=== PATIENT | male | born 1970 | race Two or more races ===

== ENCOUNTER 2017-04-14 08:03 | Emergency (ER) | payer BC ==
[2017-04-14 08:19] VITALS: BP 114/72; PULSE 82; TEMP 97.7; BMI 27.4
[2017-04-14] MEDS ORDERED: MECLIZINE HCL 25 MG TABLET (FP) PO ONE (08:53)
[2017-04-14] MEDS ORDERED: MECLIZINE HCL 25 MG TABLET (FP) ONE (08:59)
--- NOTE | 2017-04-14 09:01 | PDOC ---
History of Present Illness - General Chief Complaint: Lightheaded Stated Complaint: DIZZINESS Time Seen by Provider: 04/14/17 08:26 History Source: Patient Exam Limitations: No Limitations - History of Present Illness Initial Comments: 04/14/17 09:06 47-year-old male presents tto ED with complaints of dizziness upon awakening since yesterday. Patient states every time he gets up from a lying position he feels that the room is spinning and has to hold onto objects so he does not "fall." Patient denies headache, visual changes, nausea, neck pain, recent fever or recent chills, recent change in diet, recent change in weight, or recent illness. Patient states had similar symptoms a year and a half ago but did not seek treatment and symptoms did not return. Patient denies medical history, drug use, alcohol use or recent head injury. Timing/Duration: intermittent Severity: moderate Associated Symptoms: reports: other (dizziness) Past History - Travel Traveled outside of the country in the last 30 days: No Close contact w/someone who was outside of country & ill: No - Past Medical History Allergies/Adverse Reactions: Allergies Allergy/AdvReac Type Severity Reaction Status Date / Time No Known Allergies Allergy Verified 04/14/17 08:15 Home Medications: Ambulatory Orders Albuterol 0.083% Nebulizer Sarah [Ventolin 0.083% Nebulizer Soln -] 1 neb NEB Q6H PRN #30 vial 08/27/13 Albuterol Sulfate [Proair Hfa -] 1 - 2 inh PO QID PRN #1 inhaler 08/27/13 Mometasone Furoate [Nasonex] 1 inh IN DAILY 08/27/13 Albuterol 0.083% Nebulizer Sarah [Ventolin 0.083% Nebulizer Soln -] 1 neb NEB Q4H #90 vial 07/09/15 Albuterol Sulfate Inhaler - [Ventolin HFA Inhaler -] 2 inh PO Q4H #1 inh Prednisone [Deltasone -] 40 mg PO DAILY 5 Days 07/09/15 Asthma: Yes - Suicide/Smoking/Psychosocial Hx Smoking Status: No Smoking History: Never smoked Have you smoked in the past 12 months: No Number of Cigarettes Smoked Daily: 0 Information on smoking cessation initiated: No Hx Alcohol Use: No Drug/Substance Use Hx: No Substance Use Type: None Patient Lives Alone: No Lives with/in: spouse/SO Review of Systems - Review of Systems Able to Perform ROS?: Yes Constitutional: No: Symptoms Reported HEENTM: No: Symptoms Reported Respiratory: No: Symptoms reported Cardiac (ROS): Yes: Lightheadedness ABD/GI: No: Symptoms Reported : No: Symptoms Reported Musculoskeletal: No: Symptoms Reported Integumentary: No: Symptoms Reported Neurological: Yes: Dizziness. No: Headache, Numbness, Tingling, Weakness *Physical Exam - Vital Signs Last Vital Signs Temp Pulse Resp BP Pulse Ox 97.7 F 82 20 114/72 100 04/14/17 08:16 04/14/17 08:16 04/14/17 08:16 04/14/17 08:16 04/14/17 08:16 - Physical Exam General Appearance: Yes: Nourished, Appropriately Dressed. No: Apparent Distress HEENT: positive: EOMI, ANDREA. negative: Pale Conjunctivae Respiratory/Chest: positive: Lungs Clear, Normal Breath Sounds. negative: Respiratory Distress, Accessory Muscle Use Cardiovascular: positive: Regular Rhythm, Regular Rate. negative: Murmur Gastrointestinal/Abdominal: positive: Soft. negative: Tenderness Extremity: positive: Normal Capillary Refill. negative: Pedal Edema Integumentary: positive: Normal Color, Warm, Moist Neurologic: positive: Motor Strength 5/5 (ambulatory) Heart Score/ECG Review - ECG Intrepretation Rhythm: Regular Rhythm (normal sinus rhythm at 74. No acute findings) ED Treatment Course - RADIOLOGY Radiology Studies Ordered: Category Date Time Status HEAD CT WITHOUT CONTRAST [CT] Stat CT Scan 04/14/17 08:53 Ordered Medical Decision Making - Medical Decision Making 04/14/17 09:14 Patient with complaints of dizziness worsened with standing. Patient on exam had no acute findings. Patient was Hallpike's negative. Based on patient's history of present illness, patient will be treated for vertigo. Patient ordered for labs including CBC, comp, EKG and head CT along with meclizine. Laboratory Tests 04/14/17 04/14/17 08:10 08:10 WBC 8.6 D Hgb 14.5 Hct 43.1 Plt Count 201 D Sodium 141 Potassium 4.6 D Chloride 106 Carbon Dioxide 30 Anion Gap 5 L BUN 24 H Creatinine 1.2 D Random Glucose 139 H D Calcium 8.8 04/14/17 11:[address] negative for acute findings. Patient states that after receiving medication. Patient be discharged home with meclizine and follow-up to neurology. *DC/Admit/Observation/Transfer Diagnosis at time of Disposition: Vertigo - Discharge Dispostion Disposition: HOME Condition at time of disposition: Improved - Referrals Referrals: Mohsen Herzog DO [Staff Physician] - - Patient Instructions Printed Discharge Instructions: DI for Benign Paroxysmal Positional Vertigo Additional Instructions: At this time I recommend getting up in increments and taking the meclizine as needed for symptoms. Please also follow up with referred neurologist. If symptoms worsen prior to your follow-up and despite above recommendations please return to the nearest emergency room.
[2017-04-14 09:26] LABS: BASOPHIL 0.6 % (0-2.0); EOSINOPHIL 0.5 % (0-4.5); MCH 28.3 pg (25.7-33.7); MCHC 33.6 g/dl (32.0-35.9); MEAN CELL VOLUME 84.3 fl (80-96); MEAN PLT VOLUME 9.1 fl (7.5-11.1); NEUTROPHILS 82.5 % (42.8-82.8); PLATELET COUNT 201 K/MM3 (134-434); RDW 11.7 % (11.9-15.9); WHITE BLOOD COUNT 8.6 K/mm3 (4.0-10.0)
[2017-04-14 09:39] LABS: ALBUMIN 3.9 g/dl (3.4-5.0); ALK PHOS 101 U/L (45-117); ANION GAP 5 (8-16); BILIRUBIN,TOTAL 0.3 mg/dL (0.2-1.0); CALCIUM 8.8 mg/dL (8.5-10.1); CO2 30 mmol/L (21-32); CREATININE 1.2 mg/dL (0.7-1.3); GLUCOSE,RANDOM 139 mg/dL (74-106); SGOT/AST 16 U/L (15-37); SGPT/ALT 39 U/L (12-78); TOT PROT 7.6 g/dl (6.4-8.2)
--- NOTE | 2017-04-15 09:37 | EKG ---
Test Reason : Blood Pressure : / mmHG Vent. Rate : 074 BPM Atrial Rate : 074 BPM P-R Int : 182 ms QRS Dur : 094 ms QT Int : 374 ms P-R-T Axes : 053 088 062 degrees QTc Int : 415 ms NORMAL SINUS RHYTHM NORMAL ECG NO PREVIOUS ECGS AVAILABLE Confirmed by SALAS ARCHULETA, CHALO ([id number]) on 04/15/2017 9:37:48 AM Referred By: Confirmed By:CHALO MARINA MD
== END 2017-04-14 12:18 | disposition home or self-care (01) ==
LOC: JER 08:03
DX: H81.10 Benign paroxysmal vertigo, unspecified ear (principal)
CPT/HCPCS: 36415; 70450-TC; 80053; 85025; 93005; 93010; 99282-25

== ENCOUNTER 2019-04-15 10:52 | Emergency (ER) | payer BC, OTHER ==
[2019-04-15 11:10] VITALS: PULSE 89; BMI 27.3
--- NOTE | 2019-04-15 11:25 | PDOC ---
History of Present Illness - General Chief Complaint: Lightheaded Stated Complaint: VIRITGO Time Seen by Provider: 04/15/19 11:25 History Source: Patient Exam Limitations: No Limitations - History of Present Illness Initial Comments: 49 year old male with PMH vertigo presented to ED for dizziness room spinning sensation since last night associated with nausea. Pt reported that his symptoms are intermittent, brought on by looking to the left or getting out of bed, alleviated by lying flat. Pt reported his symptoms continued this morning, prompting him to come to the ED. He reported he does not have Meclizine at home because the last time he had an episode of vertigo was June. He denied fever , weakness, numbness, tingling, disequilibrium, visual changes, headache, chest pain, shortness of breath, lightheadedness. Pt reported currently during interview while laying flat on back symptoms are not present. Past History - Past Medical History Allergies/Adverse Reactions: Allergies Allergy/AdvReac Type Severity Reaction Status Date / Time No Known Allergies Allergy Verified 04/15/19 11:06 Home Medications: Ambulatory Orders Cetirizine HCl [Zyrtec -] 10 mg PO DAILY #30 tablet 04/15/19 Meclizine HCl 25 mg PO DAILY PRN #14 tablet 04/15/19 Asthma: Yes COPD: No Other medical history: vertigo - Psycho Social/Smoking Cessation Hx Smoking Status: No Smoking History: Never smoked Have you smoked in the past 12 months: No Number of Cigarettes Smoked Daily: 0 Hx Alcohol Use: No Drug/Substance Use Hx: No Substance Use Type: None *Physical Exam - Vital Signs Last Vital Signs Temp Pulse Resp BP Pulse Ox 97.4 F L 89 18 114/74 99 04/15/19 11:08 04/15/19 11:08 04/15/19 11:08 04/15/19 11:08 04/15/19 11:08 - Physical Exam Comments: ROS General: denied fever, chills, generalized weakness. HEENT: denied sore throat, rhinorrhea, ear pain. Cardiovascular: denied chest pain, palpitations, syncope, diaphoresis. Respiratory: denied shortness of breath, cough, sputum production, hemoptysis. Gastrointestinal: denied abdominal pain, nausea, vomiting, diarrhea, constipation, blood in stool. Genitourinary: denied dysuria, increased urinary frequency, hematuria, urinary incontinence, flank pain. Back: denied back pain. Musculoskeletal: denied joint pain, muscle pain, joint swelling. Neurological: admitted to dizziness. denied headache, numbness, tingling, weakness. Integumentary: denied rash, laceration, abrasion. Hematologic/Lymphatic: denied bruising or bleeding. PE Constitutional: Well-nourished, Well-developed, appearing stated age. HEENT: head is normocephalic, atraumatic. EOMI. PERRLA. no nystagmus. Reproduction of symptoms with neck rotation to the left. improvement of symptoms when head is placed back in midline, no symptoms when neck is rotated to the right. Neck: supple. Full ROM. Cardiovascular: regular heart rhythm. no murmurs. no pericardial friction rub. Respiratory: clear to auscultation bilaterally. no crackles, rhonchi or wheezing. no stridor. Gastrointestinal: soft, nontender. normal bowel sounds. no rebound, guarding, masses. Extremities: peripheral pulses intact. no lower extremity edema. Neurological: alert. oriented x3. CN2-12 intact. 5/5 strength all extremities. normal ankle plantar flexion. full sensation all extremities and bilateral face. romberg negative. no ataxia. gait normal. Psych: awake, alert, oriented x3. follows commands. answers questions appropriately. ED Treatment Course - LABORATORY CBC & Chemistry Diagram: 04/15/19 13:00 04/15/19 13:00 Medical Decision Making - Medical Decision Making 49 year old male with above PMH presented to ED for intermittent room spinning sensation. Initial Vital Signs Temp Pulse Resp BP Pulse Ox 97.4 F L 89 18 114/74 99 04/15/19 11:08 04/15/19 11:08 04/15/19 11:08 04/15/19 11:08 04/15/19 11:08 Afebrile. No tachycardia. No tachypnea. No hypotension. No hypoxia on room air. Labs ordered: CBC, CMP Imaging ordered: none Medications ordered: Meclizine 25 mg PO once Pt is neurologically intact, no weakness/numbness/facial drooping, no chest pain /shortness of breath/pre-syncope. Symptoms are reproducible with left sided neck rotation, and improve with head placed back in midline. Peripheral vertigo suspected. Low likelihood for central vertigo/CVA. 04/15/19 13:45 CBC WBC 13.0 K/mm3 (4.0-10.0) H 04/15/19 13:00 RBC 5.11 M/mm3 (4.00-5.60) 04/15/19 13:00 Hgb 14.4 GM/dL (11.7-16.9) 04/15/19 13:00 Hct 44.3 % (35.4-49) 04/15/19 13:00 MCV 86.6 fl (80-96) 04/15/19 13:00 MCH 28.2 pg (25.7-33.7) 04/15/19 13:00 MCHC 32.5 g/dl (32.0-35.9) 04/15/19 13:00 RDW 11.7 % (11.9-15.9) L 04/15/19 13:00 Plt Count 179 K/MM3 (134-434) 04/15/19 13:00 MPV 8.9 fl (7.5-11.1) 04/15/19 13:00 Absolute Neuts (auto) 11.4 K/mm3 (1.5-8.0) H 04/15/19 13:00 Neutrophils % 87.8 % (42.8-82.8) H 04/15/19 13:00 Lymphocytes % 6.0 % (8-40) L D 04/15/19 13:00 Monocytes % 5.4 % (3.8-10.2) 04/15/19 13:00 Eosinophils % 0.2 % (0-4.5) 04/15/19 13:00 Basophils % 0.6 % (0-2.0) 04/15/19 13:00 Nucleated RBC % 0 % (0-0) 04/15/19 13:00 CMP Sodium 138 mmol/L (136-145) 04/15/19 13:00 Potassium 4.8 mmol/L (3.5-5.1) 04/15/19 13:00 Chloride 107 mmol/L (98-107) 04/15/19 13:00 Carbon Dioxide 25 mmol/L (21-32) 04/15/19 13:00 Anion Gap 6 MMOL/L (8-16) L 04/15/19 13:00 BUN 26.0 mg/dL (7-18) H 04/15/19 13:00 Creatinine 1.1 mg/dL (0.55-1.3) 04/15/19 13:00 Est GFR (CKD-EPI)AfAm 90.24 04/15/19 13:00 Est GFR (CKD-EPI)NonAf 77.86 04/15/19 13:00 POC Glucometer 113 UNITS (80-120) 04/15/19 11:51 Random Glucose 128 mg/dL (74-106) H 04/15/19 13:00 Calcium 9.0 mg/dL (8.5-10.1) 04/15/19 13:00 Total Bilirubin 0.4 mg/dL (0.2-1) 04/15/19 13:00 AST 31 U/L (15-37) 04/15/19 13:00 ALT 36 U/L (13-61) 04/15/19 13:00 Alkaline Phosphatase 94 U/L (45-117) 04/15/19 13:00 Total Protein 7.2 g/dl (6.4-8.2) 04/15/19 13:00 Albumin 3.8 g/dl (3.4-5.0) 04/15/19 13:00 04/15/19 14:33 Pt reported improvement of symptoms. On examination pt reported some, but "much improved" dizziness with Drums- Hallpike maneuver with left neck rotation. Elevated WBC discussed with patient, denied infectious symptoms, cough, runny nose, sore thoat, abdominal pain, dysuria, fever, chills. He only reported his seasonal allergies. 04/15/19 15:11 Pt clinically improved. Pt discharged. Pt advised to take Meclizine PRN Dizziness, Zyrtec daily. ENT referral given. Pt reported he has an ENT in [place] he can F/U with. Discharge - Discharge Information Problems reviewed: Yes Clinical Impression/Diagnosis: Dizziness Condition: Improved Disposition: HOME - Admission No - Additional Discharge Information Prescriptions: Cetirizine HCl [Zyrtec -] 10 mg PO DAILY #30 tablet Meclizine HCl 25 mg PO DAILY PRN #14 tablet PRN Reason: DIZZINESS - Follow up/Referral Referrals: Sean Fay MD [Staff Physician] - - Patient Discharge Instructions Patient Printed Discharge Instructions: DI for Vertigo Additional Instructions: Follow up with your primary care doctor within 3 days. Your care is not completed until you follow up. Follow up with your ENT within 3 days. Your care is not completed until you follow up. I have provided you with a referral should you need it. Use Nasonex over the counter. Follow instructions on label. Return to the Emergency Department for dizziness not relieved by meclizine, visual changes, increasing headache, numbness, weakness, tingling, vomiting, fever or any other new, worsening or concerning symptoms. - Post Discharge Activity Work/Back to School Note: Back to Work
[2019-04-15] MEDS ORDERED: MECLIZINE HCL 25 MG TABLET (FP) ONE (11:45)
[2019-04-15] MEDS ORDERED: MECLIZINE HCL 25 MG TABLET (FP) PO ONE (11:45)
[2019-04-15 13:08] LABS: BASO % 0.6 % (0-2.0); EOS % 0.2 % (0-4.5); HEMATOCRIT 44.3 % (35.4-49); HEMOGLOBIN 14.4 GM/dL (11.7-16.9); MCH 28.2 pg (25.7-33.7); MCHC 32.5 g/dl (32.0-35.9); MEAN CELL VOLUME 86.6 fl (80-96); MEAN PLT VOLUME 8.9 fl (7.5-11.1); MONO % 5.4 % (3.8-10.2); NEUT % 87.8 % (42.8-82.8); PLATELET COUNT 179 K/MM3 (134-434); RBC 5.11 M/mm3 (4.00-5.60); RDW 11.7 % (11.9-15.9)
[2019-04-15 13:41] LABS: ALBUMIN 3.8 g/dl (3.4-5.0); BILIRUBIN,TOTAL 0.4 mg/dL (0.2-1); CREATININE 1.1 mg/dL (0.55-1.3); POTASSIUM 4.8 mmol/L (3.5-5.1); TOT PROT 7.2 g/dl (6.4-8.2)
--- NOTE | 2019-04-15 15:13 | PDOC ---
Attending Attestation - Resident Resident Name: Jenniffer Gallardo - ED Attending Attestation I have performed the following: I have examined & evaluated the patient, The case was reviewed & discussed with the resident, I agree w/resident's findings & plan, Exceptions are as noted - HPI HPI: 04/15/19 15:09 49-year-old male history of previous vertigo here today with complaining of vertigo-like symptoms described as being station worse with movement did have some nausea no vomiting no focal weakness no difficulty with balance has had similar episodes one year ago did follow-up with ENT at that time did not take anything for symptoms prior to arrival - Physicial Exam PE: 04/15/19 15:10 Awake alert no acute distress lungs are clear bilaterally heart is regular without murmurs rubs or gallops abdomen is soft nontender neurologically the patient is awake alert oriented x3 cranial nerves are intact strength is 5 out of 5 all 4 extremities [id number] is normal gait is normal negative Romberg positive Radha-Hallpike to the left patient has normal alternating hand movements - Medical Decision Making 04/15/19 15:11 79-year-old male history of previous vertigo here with what appears to be positional vertigo. Normal cerebellar exam will treat with meclizine will obtain basic lecture lites and CBC to rule out any contributing anemia or electrolyte ab normalities Patient on reassessment feels much improved will discharge with follow-up for ENT given the number for Dr. Bhandari and and a perception for meclizine also told that he should do [id number] Zyrtec for allergies and Nasonex as he is used in the past it appears allergic sinusitis is a trigger
[2019-04-15 15:41] VITALS: BP 110/76; TEMP 98.5
--- NOTE | 2019-04-19 14:41 | EKG ---
Test Reason : Blood Pressure : / mmHG Vent. Rate : 078 BPM Atrial Rate : 078 BPM P-R Int : 174 ms QRS Dur : 108 ms QT Int : 390 ms P-R-T Axes : 060 085 059 degrees QTc Int : 444 ms NORMAL SINUS RHYTHM EARLY REPOLARIZATION WHEN COMPARED WITH ECG OF 14-APR-2017 09:28, NO SIGNIFICANT CHANGE WAS FOUND Confirmed by JUDY MCPHERSON MD ([id number]) on 04/19/2019 2:41:26 PM Referred By: Confirmed By:JUDY MCPHERSON MD
== END 2019-04-15 15:41 | disposition home or self-care (01) ==
LOC: JER 10:52
DX: R42 Dizziness and giddiness (principal); J45.909 Unspecified asthma, uncomplicated
CPT/HCPCS: 36415; 80053; 82962; 85025; 93005; 93010; 99282-25

== ENCOUNTER 2020-06-08 18:57 | Emergency (ER) | payer OTHER ==
[2020-06-08 19:03] VITALS: BP 135/84; PULSE 91; TEMP 98.1; BMI 25.7
[2020-06-08] MEDS ORDERED: DIPHTH,PERTUSS(ACELL),TET 0.5 ML DISP.SYRIN IM ONE (20:06)
== END 2020-06-08 21:30 | disposition home or self-care (01) ==
LOC: JERFT 18:57
PROC: 3E0234Z Introduction of Serum, Toxoid and Vaccine into Muscle, Percutaneous Approach (ICD-10-PCS; principal; 2020-06-08)
DX: S61.001A Unspecified open wound of right thumb without damage to nail, initial encounter (principal); W26.8XXA Contact with other sharp object(s), not elsewhere classified, initial encounter
CPT/HCPCS: 90715; 99282-25

== ENCOUNTER 2021-11-04 14:12 | Emergency (ER) | payer OTHER ==
[2021-11-04 14:31] VITALS: BP 145/85; PULSE 79; TEMP 98.9; BMI 27.6
[2021-11-04] MEDS ORDERED: IBUPROFEN 600 MG TABLET (FP) PO ONE ×2 (15:27→15:38)
== END 2021-11-04 15:41 | disposition home or self-care (01) ==
LOC: JER 14:12 → JERFT 14:12
DX: M54.50 Low back pain, unspecified (principal)
CPT/HCPCS: 99283-25